=== PATIENT | female | born 1950 | race Two or more races ===

== ENCOUNTER 2024-07-09 14:37 | Inpatient (IN) | payer OTHER, MEDICARE, SELFPAY ==
[2024-07-09] VITALS (9 sets, daily range): BP systolic 116–143; BP diastolic 60–76; PULSE 62–86; RESP 16–89; TEMP 36.8–37.4; O2SAT 91–100; BMI 40.9; BMI 41.3
--- NOTE | 2024-07-09 14:56 | XR_ITS ---
Examination: PA lateral chest 2 views TECHNIQUE: Upright PA lateral chest 2 views Exam date and time: July 09, 2024 1512 hours INDICATIONS: Shortness of breath coughing one week. FINDINGS: Pneumonia posterior basal segment left lower lobe, obscuring detail of the posterior portion left hemidiaphragm on the lateral view Normal heart size Right lung clear IMPRESSION: Significant pneumonia posterior basal segment left lower lobe
--- NOTE | 2024-07-09 14:57 | PD.EDRME ---
Rapid Medical Screening Exam RME Arrival date/time: 07/09/24 14:37 74-year-old female presents to the emergency department today for complaints of shortness of breath and cough ongoing for more than a week Chief Complaint: Shortness of Breath/Dyspnea Vital signs: Vital Signs Temperature 99.4 F 07/09/24 14:51 Pulse Rate 86 07/09/24 14:51 Respiratory Rate 24 H 07/09/24 14:51 Blood Pressure 143/66 H 07/09/24 14:51 Pulse Oximetry (%) 91 L 07/09/24 14:51 Oxygen Delivery Method Room Air 07/09/24 14:51
[2024-07-09 15:21] LABS: Lactate (Lactic Acid) 0.9 mMol/L (0.4-2.0)
[2024-07-09 15:23] LABS: Basophils % (Auto) 0 % (0-2.5); Eosinophils # (Auto) 0.4 Thou/mm3 (0.0-0.5); Eosinophils % (Auto) 4 % (0-10); Hematocrit 39.5 % (36.0-46.0); Hemoglobin 13.3 g/dL (12.0-16.0); Immature Granulocytes % (Auto) 1 % (0-0); Immature Granulocytes Auto 0.12 Thou/mm3 (0.00-0.00); Lymphocytes # (Auto) 2.9 Thou/mm3 (1.0-4.8); Lymphocytes % (Auto) 26 % (10-50); Mean Corpuscular HGB Conc 33.7 g/dl (31.0-37.0); Mean Corpuscular Hemoglobin 28.2 pg (25.0-35.0); Mean Corpuscular Volume 84 fL (80-100); Monocytes # (Auto) 0.6 Thou/mm3 (0.0-0.8); Monocytes % (Auto) 5 % (0-12); Neutrophils % (Auto) 64 % (37-80); Nucleated Red Blood Cell % 0 /100 WBC (0); Platelet Count 306 Thou/mm3 (140-440); RDW Standard Deviation 42.7 fL (36.4-46.3); Red Blood Count 4.72 Miln/mm3 (4.00-5.20)
[2024-07-09 15:48] LABS: Alanine Aminotransferase 32 U/L (10-49); Albumin, Serum 4.6 gm/dL (3.4-4.8); Albumin/Globulin Ratio 2.6 (1.2-2.2); Alkaline Phosphatase 83 U/L (46-116); Anion Gap 9 (7-16); Aspartate Amino Transferase 25 U/L (0-34); BUN/Creatinine Ratio 20 Ratio (12-20); Bilirubin,Total 0.4 mg/dL (0.3-1.2); Blood Urea Nitrogen 12 mg/dL (9-23); Calcium 10.9 mg/dL (8.3-10.6); Calcium (Corrected) 10.9 mg/dL (8.5-10.1); Carbon Dioxide 27.2 mMol/L (20.0-31.0); Chloride 104 mMol/L (98-107); Creatinine (Component) 0.6 mg/dL (0.6-1.3); Estimated Creatinine Clearance 76.9 mL/min (>60); Globulin 1.8 gm/dL (2.3-3.5); Glucose 102 mg/dL (74-106); Osmolality,Calculated 279 (275-295); Potassium 4.3 mMol/L (3.4-5.1); Procalcitonin 0.06 ng/ml (0.0-0.49); Sodium 140 mMol/L (136-145); Total Protein 6.4 gm/dL (5.7-8.2); eGFR > 60 See Note
[2024-07-09] MEDS: DEXAMETHASONE SOD PHOS INJ 10 MG/ML VIAL PO (16:00)
[2024-07-09] MEDS: ALBUTEROL/IPRATROPIUM (Duoneb) RT SOL 3 ML NEBU INH (16:16)
[2024-07-09] MEDS: cefTRIAXone/D5w 1gm IV premix 1 GM/50 ML BAG IV (17:21)
[2024-07-09] MEDS: SODIUM CHLORIDE RT SOL 0.9% 3 ML NEBU INH (17:39)
[2024-07-09] MEDS: ALBUTEROL RT 2.5 MG/0.5 ML NEBU INH (17:39)
--- NOTE | 2024-07-09 18:52 | PC.NURSE ---
Pt was walked to the bathroom and then came back from restroom short of breath put back on pulse ox pt o2 sats 86% on RA placed on oxygen 2L pt on 89% increased to 4L pt at 92% provider made aware
--- NOTE | 2024-07-09 19:06 | EKG_ITS ---
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
[2024-07-09 19:38] LABS: Troponin I < 0.020 ng/mL (0.0-0.045)
--- NOTE | 2024-07-09 20:00 | PD.EDSOB ---
ED SOB =RME/HPI General Chief Complaint: Shortness of Breath/Dyspnea Stated Complaint: Sent by pmd for c/o low 02 sats, cough Time Seen by Provider: 07/09/24 15:53 Source: patient Arrival date/time: 07/09/24 14:37 74-year-old female with a history of hypertension and hyperlipidemia presents to the emergency room with a chief complaint of shortness of breath and cough x 10 days Mode of arrival: ambulatory Limitations: no limitations RME / HPI RME / HPI Narrative: 07/09/24 14:37 74-year-old female presents to the emergency department today for complaints of shortness of breath and cough ongoing for more than a week Related Data Home Medications ?Medication ?Instructions ?Recorded ?Confirmed alendronate 70 mg tablet 70 mg PO QDAY 07/12/21 07/12/21 amitriptyline 25 mg tablet 25 mg PO HS 07/12/21 07/12/21 ramipril 10 mg capsule 10 mg PO QDAY 07/12/21 07/12/21 Previous Rx's ?Medication ?Instructions ?Recorded prednisone 20 mg tablet See Taper PO QDAY #8 tabs 07/14/21 Allergies Allergy/AdvReac Type Severity Reaction Status Date / Time acetaminophen (From Vicodin) Allergy Nausea Verified 07/09/24 14:42 hydrocodone (From Vicodin) Allergy Nausea Verified 07/09/24 14:42 Influenza Virus Vaccines AdvReac Severe severe flu Verified 07/09/24 14:42 symptoms Review of Systems Review of Systems Systems Reviewed: All systems reviewed, normal except as documented Constitutional Constitutional: Reports system reviewed and no additional complaints, except as documented, Denies fatigue, Denies fever(s), Denies headache(s) and Denies weakness Eyes Eyes: Reports system reviewed and no additional complaints, except as documented, Denies blurry vision and Denies change in vision ENT Ears, Nose, Mouth, and Throat: Reports system reviewed and no additional complaints, except as documented, Denies otalgia, Denies headache(s), Denies nasal congestion, Denies throat swelling and Denies vertigo Cardiovascular Cardiovascular: Reports system reviewed and no additional complaints, except as documented, Denies chest pain, Reports dyspnea and Reports dyspnea on exertion Respiratory Respiratory: Reports system reviewed and no additional complaints, except as documented, Denies chest congestion, Reports cough, Reports dyspnea, Reports dyspnea on exertion, Reports excessive phlegm production and Reports wheezing Gastrointestinal Gastrointestinal: Reports system reviewed and no additional complaints, except as documented, Denies abdominal pain, Denies cramping, Denies nausea and Denies vomiting Genitourinary Genitourinary: Reports system reviewed and no additional complaints, except as documented Musculoskeletal Musculoskeletal: Reports system reviewed and no additional complaints, except as documented and Denies back pain Integumentary/Breasts Skin/Breast: Reports system reviewed and no additional complaints, except as documented and Denies wounds Neurologic Neurologic: Reports system reviewed and no additional complaints, except as documented, Denies confusion, Denies headache(s), Denies lack of coordination, Denies vertigo and Denies weakness Psychiatric Psychiatric: Reports system reviewed and no additional complaints, except as documented, Denies anxiety, Denies confusion, Denies depression, Denies paranoia, Denies suicidal ideation and Denies tactile hallucinations Endocrine Endocrine: Reports system reviewed and no additional complaints, except as documented and Denies fatigue Hematologic/Lymphatic Hematologic/Lymphatic: Reports system reviewed and no additional complaints, except as documented and Denies lymphadenopathy Allergic/Immunologic Allergic/Immunologic: Reports system reviewed and no additional complaints, except as documented, Denies throat swelling, Denies urticaria and Reports wheezing Past Medical History Past Medical History CARDIAC: Positive Hypertension; Negative Congestive Heart Failure RESPIRATORY: Negative Chronic Obstructive Pulmonary Disease (COPD) GASTROINTESTINAL: Positive Hemorrhoids and Obesity GENITOURINARY: Positive Renal Disease and Kidney Stones ENDOCRINE: Negative Diabetes Mellitus Type 1 or Diabetes Mellitus Type 2 Social History SMOKING STATUS: Former smoker ED Exam General Limitations: Present no limitations General appearance: Present alert and in no apparent distress Head Head exam: Present atraumatic Eye Eye exam: Present normal appearance, PERRL and EOMI ENT ENT exam: Present normal exam, normal oropharynx and mucous membranes moist Neck Neck exam: Present normal inspection, full ROM and trachea midline Chest Chest inspection: Present normal inspection and symmetric chest wall rise Respiratory Respiratory exam: Present normal lung sounds bilaterally, respiratory distress and wheezes; Absent stridor, accessory muscle use or prolonged expiratory phase Expanded Respiratory Exam Location: Left: wheezes, Right: wheezes, Upper: wheezes and Lower: wheezes Cardiovascular Cardiovascular exam: Present regular rate, normal rhythm and normal heart sounds; Absent bradycardia, tachycardia or irregular rhythm Abdominal Exam Abdominal exam: Present soft and normal bowel sounds; Absent tenderness Extremities Exam Extremities exam: Present normal inspection and full ROM Back Exam Back exam: Present normal inspection and full ROM Neurological Exam Neurological exam: Present alert, oriented X3 and CN II-XII intact Psychiatric Psychiatric exam: Present normal affect and normal mood Skin Skin exam: Present warm, dry, intact and normal color Course Quality Measures none Orders Category Date Time Status Admit to Inpatient Status Routine Admission 07/09/24 20:17 Active Patient Condition Routine Admission 07/09/24 20:17 Ordered Bedside COVID-19 Antigen Test NOW Care 07/09/24 14:56 Active Bedside Influenza A&B Antigen Test NOW Care 07/09/24 14:56 Completed EKG (ED ONLY) *Do not use* NOW Care 07/09/24 19:06 Completed Insert IV STAT Care 07/09/24 16:46 Active Miscellaneous Nursing Order NOW Care 07/09/24 20:17 Active Notify provider NEEDED Care 07/09/24 20:17 Active Nurse Swallow Screen X1 Care 07/09/24 20:17 Active Diet Carbohydrate Consistent Diet 07/10/24 Breakfast Active EKG (ED Only) Stat Exams 07/09/24 19:06 Draft XR chest 2V Stat Exams 07/09/24 14:56 Completed Blood Culture (Lab) Stat Lab 07/09/24 15:12 Received CBC AM DRAW Lab 07/10/24 05:00 Ordered CBC AM DRAW Lab 07/11/24 05:00 Ordered CBC AM DRAW Lab 07/12/24 05:00 Ordered CBC Stat Lab 07/09/24 15:09 Completed Cocci Serology IgM with reflex to IgG [Cocci Serology, Lab 07/09/24 20:20 Ordered Unk History] Routine Comprehensive Metabolic Panel AM DRAW Lab 07/10/24 05:00 Ordered Comprehensive Metabolic Panel AM DRAW Lab 07/11/24 05:00 Ordered Comprehensive Metabolic Panel AM DRAW Lab 07/12/24 05:00 Ordered Comprehensive Metabolic Panel Stat Lab 07/09/24 15:09 Completed D-Dimer Routine Lab 07/09/24 20:20 Ordered Lactate (Lactic Acid) Stat Lab 07/09/24 15:09 Completed Lipid Panel AM DRAW Lab 07/10/24 05:00 Ordered Magnesium AM DRAW Lab 07/10/24 05:00 Ordered Magnesium AM DRAW Lab 07/11/24 05:00 Ordered Magnesium AM DRAW Lab 07/12/24 05:00 Ordered Procalcitonin Stat Lab 07/09/24 15:09 Completed RSV [Respiratory Syncytial Virus Ag] Routine Lab 07/09/24 20:20 Ordered Sputum Culture and Gram Stain Routine Lab 07/09/24 20:19 Ordered Thyroid Stimulating Hormone AM DRAW Lab 07/10/24 05:00 Ordered Troponin I Stat Lab 07/09/24 19:10 Completed ALBUTEROL RT 0.5ml [Proventil Rt 0.5ml] Med 07/09/24 17:26 Discontinued 2.5 mg INH X1 ONE Albuterol/Ipratr Rt Sandy [Duoneb Rt Sandy] Med 07/09/24 20:23 Active 3 ml INH Q4HRRT PRN Albuterol/Ipratr Rt Sandy [Duoneb Rt Sandy] Med 07/09/24 15:53 Discontinued 3 ml INH X1 ONE Azithromycin Inj [Zithromax Inj] 500 mg Med 07/10/24 09:00 Pending Sodium Chloride 0.9% 250 ml [Ns] 250 ml IV QDAY Azithromycin Inj [Zithromax Inj] 500 mg Med 07/09/24 20:30 Active Sodium Chloride 0.9% 250 ml [Ns] 250 ml IV X1 Dexamethasone Inj [Decadron Inj] Med 07/09/24 15:53 Discontinued 10 mg PO X1 ONE Heparin Inj Med 07/09/24 22:00 Active 5,000 unit SC Q8HR Metoclopramide Inj [Reglan Inj] Med 07/09/24 20:17 Active 10 mg IVP Q6H PRN Pantoprazole [Protonix] Med 07/10/24 09:00 Active 40 mg PO QDAY Sodium Chloride Rt Sandy 0.9% [NS Rt Sandy 0.9%] Med 07/09/24 17:26 Active 3 ml INH PRN PRN Sodium Chloride Rt Sandy 10% [NS Rt Sandy 10%] Med 07/09/24 20:17 Discontinued 5 ml INH X1 ONE cefTRIAXone/D5w 1gm IV premix [Rocephin/D5w 1gm IV Med 07/10/24 09:00 Active premix] 1 gm in 50 ml IV QDAY cefTRIAXone/D5w 1gm IV premix [Rocephin/D5w 1gm IV Med 07/09/24 16:46 Discontinued premix] 1 gm in 50 ml IV X1 Code Status Routine Oth 07/09/24 20:17 Ordered Oxygen Delivery PRN RT 07/09/24 20:17 Active Sputum Induction PRN RT 07/09/24 20:30 Ordered Vital Signs Vital signs: Vital Signs Temperature 99.4 F 07/09/24 14:51 Pulse Rate 86 07/09/24 14:51 Respiratory Rate 24 H 07/09/24 14:51 Blood Pressure 143/66 H 07/09/24 14:51 Pulse Oximetry (%) 91 L 07/09/24 14:51 Oxygen Delivery Method Room Air 07/09/24 14:51 Patient is a 91% on 2 L nasal cannula Shortness of Breath / Dyspnea MDM Narrative MDM Narrative:: 74-year-old female with a history of hypertension and hyperlipidemia presents to the emergency room with a chief complaint of shortness of breath and cough x 10 days The patient was sent over by her primary care provider for hypoxia at the clinic. Patient was 86% on room air Physical examination shows bilateral wheezing to the upper and lower lobes. The patient is short of breath with exertion. The patient was given 1 DuoNeb treatment and some steroids and reevaluated in 1 hour with no significant improvement to her symptoms. Patient was then walked around the department and then desatted to 88% on room air. Patient is currently 92% on 4 L nasal cannula. X-rays were completed and shows some right-sided pneumonia. Antibiotics were given to her Dr. Glass was called for admission of this patient due to hypoxia and pneumonia. They will admit the patient Patient data External records reviewed:: [facility] previous records Clinical information provided by:: patient Social determinants that could affect healthcare access:: none Patient has the following chronic illnesses:: No chronic illness How is presenting disease/condition affected by chronic disease/condition?: no chronic disease Evaluation data The following diagnostics were reviewed and interpreted by me:: lab results and radiology exam(s) Lab and/or radiology exams considered but not ordered:: Labs and radiology exams considered and ordered Interpretation Summary: Chest [id number]: Pneumonia posterior basal segment left lower lobe, obscuring detail of the posterior portion left hemidiaphragm on the lateral view Normal heart size Right lung clear IMPRESSION: Significant pneumonia posterior basal segment left lower lobe Medications / Prescriptions Medications or Prescriptions considered but not ordered:: Medication given Medication administrations:: Medication Administration History Albuterol/Ipratropium (Albuterol/Ipratropium (Duoneb) Rt Sandy 3 Ml Nebu) 3 ml INH Q4HRRT PRN PRN Reason: SOB or wheezing Stop: 08/08/24 22:59 Heparin Sodium (Porcine) (Heparin Sod Inj 5000 Unit/Ml Vial) 5,000 unit SC Q8HR CLAUDETTE Stop: 07/23/24 21:59 Ceftriaxone Sodium/Dextrose (Rocephin/D5w 1gm Iv Premix) 1 gm in 50 mls @ 100 mls/hr IV QDAY CLAUDETTE Stop: 07/17/24 08:59 Azithromycin 500 mg/ Sodium (Chloride) 250 mls @ 250 mls/hr IV QDAY CLAUDETTE Stop: 07/17/24 08:59 Azithromycin 500 mg/ Sodium (Chloride) 250 mls @ 250 mls/hr IV X1 ONE Stop: 07/09/24 21:29 Metoclopramide HCl (Metoclopramide Inj 5 Mg/Ml Vial 2 Ml) 10 mg IVP Q6H PRN; Protocol PRN Reason: NAUSEA OR VOMITING Stop: 08/08/24 20:16 Pantoprazole Sodium (Pantoprazole 40 Mg Tablet) 40 mg PO QDAY CLAUDETTE Stop: 08/09/24 08:59 Sodium Chloride (Sodium Chloride Rt Sandy 0.9% 3 Ml Nebu) 3 ml INH PRN PRN PRN Reason: SOLN Stop: 08/08/24 17:25 Last Admin: 07/09/24 17:39 Dose: 3 ml Documented By: CRISTA Discontinued Medications Albuterol (Albuterol Rt 2.5 Mg/0.5 Ml Nebu) 2.5 mg INH X1 ONE Stop: 07/09/24 17:27 Last Admin: 07/09/24 17:39 Dose: 2.5 mg Documented By: CRISTA Albuterol/Ipratropium (Albuterol/Ipratropium (Duoneb) Rt Sandy 3 Ml Nebu) 3 ml INH X1 ONE Stop: 07/09/24 15:54 Last Admin: 07/09/24 16:16 Dose: 3 ml Documented By: TULIO Dexamethasone Sodium Phosphate (Dexamethasone Sod Phos Inj 10 Mg/Ml Vial) 10 mg PO X1 ONE Stop: 07/09/24 15:54 Last Admin: 07/09/24 16:00 Dose: 10 mg Documented By: DB Comments: MED GIVEN PO PER ORDER Ceftriaxone Sodium/Dextrose (Rocephin/D5w 1gm Iv Premix) 1 gm in 50 mls @ 100 mls/hr IV X1 ONE Stop: 07/09/24 17:15 Last Infusion: 07/09/24 17:55 Dose: Infused Documented By: Admin: 07/09/24 17:21 Dose: 100 mls/hr Documented By: ANYI Sodium Chloride (Sodium Chloride Rt 10% 15 Ml Nebu) 5 ml INH X1 ONE Stop: 07/09/24 20:18 Medication given Consultations Consultation(s) initiated? (list below): No Diagnosis Shortness of Breath Differential Diagnosis: acute exacerbation of chronic obstructive airways disease, congestive heart failure, community acquired pneumonia, asthma with exacerbation and pulmonary embolism Most likely diagnosis given after review of the tests above:: Community-acquired pneumonia Admission Indicated Admission indicated?: indicated Explain why admission is indicated or not indicated:: Patient will be admitted for IV antibiotics and close observation due to her pneumonia and hypoxia Admission Request Was there a request for admission?: Yes Admission Attestation Admission request attestation: Discussed case with [Dr. Reid] from Hospitalist service regarding admission. Discussed patients ED course, exam findings, labs, and radiology results. The Hospitalist [agrees,declines] to accept the patient for admission. Disposition Plan Disposition Plan: Admit Discharge Plan Plan Patient Disposition: Admit Acute Care w/in Hospital Discharge Disposition comment: Stable Prescriptions/Referrals Prescriptions/Med Rec: No Action alendronate 70 mg tablet 70 mg PO QDAY Patient Comments: TAKE ONE TABLET BY MOUTH EVERY WEEK IN THE MORNING WITH GLASS OF WATER BONE Rx Instructions: Monday. amitriptyline 25 mg tablet 25 mg PO HS Patient Comments: TAKE ONE TABLET BY MOUTH EVERY DAY AT BED TIME ramipril 10 mg capsule 10 mg PO QDAY Patient Comments: TAKE ONE CAPSULE BY MOUTH EVERY DAY prednisone 20 mg tablet See Taper PO QDAY Qty: 8 0RF Taper: Prednisone Taper 40 mg DAILY for 2 Days and 0 Hour 30 mg DAILY for 2 Days and 0 Hour 20 mg DAILY for 2 Days and 0 Hour 10 mg DAILY for 2 Days Problem List Clinical Impression: Community acquired pneumonia Patient/Caregiver Discharge Instructions Print Language: Hebrew Stand Alone Forms: [facility]est[facility] Award Info., Patient Portal Info Letter
--- NOTE | 2024-07-09 20:22 | PD.RESHP ---
Documentation for date of: 07/09/24 HPI History of Present Illness Chief complaint: SOB, cough History of present illness: 74-year-old female with past medical history of hypertension, prediabetes, and hyperlipidemia was admitted to the hospital on 08/05/2024 after coming to the ED with complaints of shortness of breath. In the ED patient was walked and patient was hypoxic on room air she desaturated to 86 while walking she had to be placed on 4 L of O2 via nasal cannula to increase O2 to 92%. On assessment patient stated that around 10 days ago she started having cough and shortness of breath. She also stated that a great grandson was likely sick with some sneezing and possibly the common cold, but he was not taking any medications for this. Other than this patient does not have any other complaints at this time other than the shortness of breath in the productive cough. She denied any chest pain, fevers, chills, night sweats, or weight loss. Otherwise patient had no other complaints at this time. She also denied any leg swelling, abdominal pain, or changes in bowel movements. She does have a history of previous smoking around 20 years ago where she used to smoke around half pack per day for more than 10 years. ED course: Patient came in hypertensive, tachypneic, afebrile, and hypoxic. Initial labs were unremarkable and troponins were negative as well as procalcitonin. Initial imaging showed chest x-ray with that shows some pneumonia of posterior basal segment of the left lower lobe and EKG shows sinus rhythm. In the ED patient received breathing treatments and dexamethasone, without any improvement in patient's O2 saturations. PMH: As above Social Hx: Denies any drugs, alcohol, PAD smoker Review of Systems Review of Systems Narrative Review of Systems: Constitutional: Denies sweats, Denies weight loss/gain, Denies fever, Denies chills. HEENT: Denies hearing loss, Denies ear pain, Denies postnasal drip, Denies double vision, Denies blurry vision. Respiratory: Admits shortness of breath, Admits cough, Denies wheezing. Cardiovascular: Denies chest pain, Denies palpitations, Denies sudden loss of consciousness. GI: Denies blood in stool, Denies constipation, Denies abdominal pain, Denies difficulty swallowing, Denies nausea or vomit. : Denies urinary incontinence, Denies pain while urinating, Denies increased urinary frequency. MSK: Denies joint pain, Denies joint swelling, Denies numbness. Skin: Denies rash, Denies itching, Denies easy bruising. Neuro: Denies headaches, Denies dizziness, Denies seizures. Exam Vital Signs Temp Pulse Resp BP Pulse Ox O2 Del Method O2 Flow Rate 99.2 F 81 16 116/70 92 L Nasal Cannula 4 07/09/24 18:20 07/09/24 18:20 07/09/24 18:20 07/09/24 18:20 07/09/24 18:54 07/09/24 18:54 07/09/24 18:54 Narrative Exam General: A/O x3, no acute distress, well-nourished, well-developed Eyes: PERRL, EOMI. Anicteric, vision grossly intact. Ears: No ear pain, no ear discharge, Hearing grossly intact. Nose: No nasal discharge. Mouth/Throat: Moist mucous membranes, no redness, no lesions. Neck: Neck supple, non-tender, no cervical lymphadenopathy. Lungs: upper airway congestion and mild rhonchi, No accessory muscle use. Cardio: Normal S1/S2, regular rhythm, no murmurs, no JVD Abdomen: Soft, non-tender, no palpable masses, peristalsis present, no guarding or rebound. Extremities: Symmetrical, no significant deformities, no peripheral edema , non-tender, peripheral pulses presents. Skin: No rashes, no lesions, warm to touch. Neuro: No focal neurological deficits. Psych: Cooperative, appropriate mood and effect. Results: Labs 07/09/24 15:09 07/09/24 15:09 Labs: Short CBC 07/09/24 Range/Units 15:09 WBC 11.0 (3.6-11.0) Thou/mm3 Hgb 13.3 (12.0-16.0) g/dL Hct 39.5 (36.0-46.0) % Plt Count 306 (140-440) Thou/mm3 BMP 07/09/24 15:09 Sodium 140 Potassium 4.3 Chloride 104 Carbon Dioxide 27.2 BUN 12 Creatinine 0.6 Glucose 102 Calcium 10.9 H Cardiac Enzymes 07/09/24 Range/Units 19:10 Troponin I < 0.020 (0.0-0.045) ng/mL Liver Function 07/09/24 Range/Units 15:09 Total Bilirubin 0.4 (0.3-1.2) mg/dL AST 25 (0-34) U/L ALT 32 (10-49) U/L Alkaline Phosphatase 83 (46-116) U/L Albumin 4.6 (3.4-4.8) gm/dL Quality Measures Quality Measures none Advance care planning discussed with:: patient and child Medications Home Medications and Allergies Home Medications ?Medication ?Instructions ?Recorded ?Confirmed ?Type amitriptyline 25 mg tablet 25 mg PO HS 07/12/21 07/09/24 History ramipril 10 mg capsule 10 mg PO QDAY 07/12/21 07/09/24 History aspirin 81 mg tablet,delayed 81 mg PO QDAY 07/09/24 07/09/24 History release (Adult Low Dose Aspirin) atorvastatin 20 mg tablet 20 mg PO QDAY 07/09/24 07/09/24 History Allergies Allergy/AdvReac Type Severity Reaction Status Date / Time acetaminophen (From Vicodin) Allergy Nausea Verified 07/09/24 14:42 hydrocodone (From Vicodin) Allergy Nausea Verified 07/09/24 14:42 Influenza Virus Vaccines AdvReac Severe severe flu Verified 07/09/24 14:42 symptoms Visit Medications Heparin Sodium (Porcine) (Heparin Sod Inj 5000 Unit/Ml Vial) 5,000 unit SC Q8HR CLAUDETTE Stop: 07/23/24 21:59 Ceftriaxone Sodium/Dextrose (Rocephin/D5w 1gm Iv Premix) 1 gm in 50 mls @ 100 mls/hr IV QDAY CLAUDETTE Stop: 07/16/24 20:19 Azithromycin 500 mg/ Sodium (Chloride) 250 mls @ 250 mls/hr IV QDAY CLAUDETTE Stop: 07/16/24 20:20 Metoclopramide HCl (Metoclopramide Inj 5 Mg/Ml Vial 2 Ml) 10 mg IVP Q6H PRN; Protocol PRN Reason: NAUSEA OR VOMITING Stop: 08/08/24 20:16 Sodium Chloride (Sodium Chloride Rt Sandy 0.9% 3 Ml Nebu) 3 ml INH PRN PRN PRN Reason: SOLN Stop: 08/08/24 17:25 Last Admin: 07/09/24 17:39 Dose: 3 ml Sodium Chloride (Sodium Chloride Rt 10% 15 Ml Nebu) 5 ml INH X1 ONE Stop: 07/09/24 20:18 Discontinued Medications Albuterol (Albuterol Rt 2.5 Mg/0.5 Ml Nebu) 2.5 mg INH X1 ONE Stop: 07/09/24 17:27 Last Admin: 07/09/24 17:39 Dose: 2.5 mg Albuterol/Ipratropium (Albuterol/Ipratropium (Duoneb) Rt Sandy 3 Ml Nebu) 3 ml INH X1 ONE Stop: 07/09/24 15:54 Last Admin: 07/09/24 16:16 Dose: 3 ml Dexamethasone Sodium Phosphate (Dexamethasone Sod Phos Inj 10 Mg/Ml Vial) 10 mg PO X1 ONE Stop: 07/09/24 15:54 Last Admin: 07/09/24 16:00 Dose: 10 mg Ceftriaxone Sodium/Dextrose (Rocephin/D5w 1gm Iv Premix) 1 gm in 50 mls @ 100 mls/hr IV X1 ONE Stop: 07/09/24 17:15 Last Infusion: 07/09/24 17:55 Dose: Infused Assessment & Plan Plan 74-year-old female with past medical history of hypertension, prediabetes, and hyperlipidemia was admitted to the hospital on 08/05/2024 for acute hypoxic respiratory failure likely secondary to community-acquired pneumonia. #Acute hypoxic respiratory failure #Community-acquired pneumonia Patient came in with complaints of shortness of breath with productive cough of around 10 days ago. Patient's labs look fairly unremarkable but finally WBC elevations and negative procalcitonin. Patient's chest x-ray that shows some left lower lobe pneumonia. Given patient's hypoxemia which for chest x-ray imaging findings seem to prominent will exclude PE given the low scores of 0. Plan: Start azithromycin and Rocephin (07/09/2024?) DuoNebs D-dimer to rule out PE Cocci ordered RSV ordered Sputum cultures ordered Continue O2 as needed Will continue to monitor Chronic diseases: #Hx of hypertension #Hx of hyperlipidemia #Hx of prediabetes Ordered morning lipid panel, TSH, and A1c. Patient's blood pressure is under control at the time of admission therefore will not start patient on any antihypertensive medication for now. Will wait for medication reconciliation prior to starting home medications. Disposition: Patient admitted to med surg for AHRF 2/2 CAP. Diet: carb low GI prophylaxis: protonix DVT prophylaxis: heparin sub cu Code: Full Case disclosed with Attending Dr. Lior Arias PGY1 Disclaimer: Even though this this note was dictated by speech recognition and even though it was carefully revised there may still be minor errors in director print due to voice recognition software. Attending Provider Attestation/Addendum Face to face evaluation was performed by me. I have personally seen and examined the patient. I discussed the assessment and plan with the entire medicine team. I reviewed available medical records, imaging studies, laboratory results. I agree with the above subjective data, objective findings, assessment and plan except as corrected by me or noted below #Acute hypoxic respiratory failure #Community-acquired pneumonia, bacterial likely GPC # Hx of CVA#HLD# Prediabetes # Hx of HTN essential -CAP Abx coverage with cef iv and azithro- can switch to po - D dimer not elevated -Supplemental O2, wean as able, breahting treatments PRN - Continue appropriate home meds monitor BP abd HR More than > 30 minutes spent on the encounter
[2024-07-09 21:10] LABS: D-Dimer 319 ng/mL (<600)
[2024-07-09] MEDS: AZITHROMYCIN INJ 500 MG in SODIUM CHLORIDE 0.9% 250 ML 250 ML 250 MG IV (21:32)
--- NOTE | 2024-07-09 21:40 | PC.NURSE ---
Report given to floor nurse, EVERTON Malik
[2024-07-09] MEDS: HEPARIN SOD INJ 5000 UNIT/ML VIAL SC (22:31)
[2024-07-09 22:43] LABS: Respiratory Syncytial Virus Ag Negative (Negative)
[2024-07-09] MEDS: MELATONIN 3 MG TABLET PO (23:04)
[2024-07-10] VITALS (9 sets, daily range): BP systolic 107–128; BP diastolic 49–75; PULSE 59–86; RESP 16–20; TEMP 36.2–36.4; O2SAT 91–96
[2024-07-10] MEDS: guaiFENesin SYRUP 200 MG/10 ML UDC PO (03:59)
[2024-07-10] MEDS: HEPARIN SOD INJ 5000 UNIT/ML VIAL SC ×3 (05:12→21:47)
[2024-07-10 05:44] LABS: Basophils % (Auto) 0 % (0-2.5); Eosinophils % (Auto) 0 % (0-10); Hemoglobin 12.9 g/dL (12.0-16.0); Immature Granulocytes % (Auto) 2 % (0-0); Immature Granulocytes Auto 0.14 Thou/mm3 (0.00-0.00); Lymphocytes # (Auto) 1.2 Thou/mm3 (1.0-4.8); Lymphocytes % (Auto) 12 % (10-50); Mean Corpuscular HGB Conc 33.9 g/dl (31.0-37.0); Mean Corpuscular Hemoglobin 28.4 pg (25.0-35.0); Mean Corpuscular Volume 84 fL (80-100); Monocytes # (Auto) 0.1 Thou/mm3 (0.0-0.8); Monocytes % (Auto) 2 % (0-12); Neutrophils % (Auto) 85 % (37-80); Nucleated Red Blood Cell % 0 /100 WBC (0); Platelet Count 317 Thou/mm3 (140-440); RDW Standard Deviation 42.5 fL (36.4-46.3); Red Blood Count 4.55 Miln/mm3 (4.00-5.20); White Blood Count 9.5 Thou/mm3 (3.6-11.0)
[2024-07-10 06:06] LABS: Glucose Estimated Average 123 mg/dL (80-131); Hemoglobin A1C 5.9 % Hgb (4.8-6.0)
[2024-07-10 06:37] LABS: Alanine Aminotransferase 31 U/L (10-49); Albumin, Serum 4.4 gm/dL (3.4-4.8); Albumin/Globulin Ratio 2.3 (1.2-2.2); Alkaline Phosphatase 77 U/L (46-116); Anion Gap 12 (7-16); Aspartate Amino Transferase 25 U/L (0-34); BUN/Creatinine Ratio 23 Ratio (12-20); Bilirubin,Total 0.3 mg/dL (0.3-1.2); Blood Urea Nitrogen 14 mg/dL (9-23); Calcium 9.3 mg/dL (8.3-10.6); Calcium (Corrected) 9.3 mg/dL (8.5-10.1); Cardiac Risk Estimate 2.9 RATIO (3.7-5.6); Chloride 108 mMol/L (98-107); Cholesterol 177 mg/dL (132-200); Creatinine (Component) 0.6 mg/dL (0.6-1.3); Estimated Creatinine Clearance 75.3 mL/min (>60); Globulin 1.9 gm/dL (2.3-3.5); Glucose 153 mg/dL (74-106); HDL Cholesterol 61 mg/dL (40-60); LDL Cholesterol,Calculated 95 mg/dL (0-130); Magnesium 1.8 mg/dL (1.6-2.6); Osmolality,Calculated 290 (275-295); Potassium 4.4 mMol/L (3.4-5.1); Sodium 144 mMol/L (136-145); Thyroid Stimulating Hormone 0.38 uIU/mL (0.55-4.78); Total Protein 6.3 gm/dL (5.7-8.2); Triglycerides 104 mg/dL (30-150); eGFR > 60 See Note
[2024-07-10 08:38] LABS: Free T4 (Free Thyroxine) 0.91 ng/dL (0.89-1.76)
[2024-07-10] MEDS: cefTRIAXone/D5w 1gm IV premix 1 GM/50 ML BAG IV (08:44)
[2024-07-10 12:08] LABS: Cocci Serology, IgM Negative (Negative)
[2024-07-10] MEDS: BENZONATATE 100 MG CAPSULE 200 MG PO (12:16)
--- NOTE | 2024-07-10 14:24 | ESPR_ITS ---
<Statement entered by Stas Mensah MD - 07/11/24 07:13> I discussed with and supervised the internet security specialist physician involved in the care of this patient. Patient assessment and plan was discussed with entire medicine team, including my attending. I agree with the assessment and plan as documented by internet security specialist doctor. Patient care was discussed with my attending physician Dr. Michelet Mensah, PGY-2 Documentation for date of: 07/10/24 Subjective Subjective Interval history: Patient is seen and examined at bedside No acute overnight events. Endorsed that she is having cough associated with mild sputum Vitals are stable, saturating around 94% with 2 L oxygen. Physical examination remains unremarkable Labs are unremarkable except for mildly elevated blood glucose. Tested negative for cocci IgM Will continue ceftriaxone and azithromycin for today. Will recheck saturation tomorrow and if patient is maintaining saturation at room air, we will discharge tomorrow Exam Vital Signs Temp Pulse Resp BP Pulse Ox O2 Del Method O2 Flow Rate 97.5 F 86 20 115/75 96 Nasal Cannula 3 07/10/24 12:00 07/10/24 12:00 07/10/24 12:00 07/10/24 12:07/10/24 12:07/10/24 12:07/10/24 12:00 Narrative Exam General: Awake. HEENT: Normocephalic, atraumatic, mucous membranes moist. Heart: Regular rate and rhythm, no murmurs. Lungs: Clear to auscultation with no wheezing or crackles. Abdomen: Soft, nondistended, nontender, positive bowel sounds. ?No guarding or rebound tenderness. Neurologic: Alert and oriented x3, no gross neurological deficit, and patient able to move all 4 extremities. Extremities: No edema. Skin: No rash or ecchymoses. Objective Labs 07/10/24 04:55 07/10/24 04:55 Labs: Laboratory Results - last 24 hr 07/09/24 07/09/24 07/09/24 15:09 19:10 21:18 WBC 11.0 RBC 4.72 Hgb 13.3 Hct 39.5 MCV 84 MCH 28.2 MCHC 33.7 RDW Std Deviation 42.7 Plt Count 306 Neut % (Auto) 64 Lymph % (Auto) 26 Gem % (Auto) 5 Eos % (Auto) 4 Baso % (Auto) 0 Neut # (Auto) 7.0 Lymph # (Auto) 2.9 Gem # (Auto) 0.6 Eos # (Auto) 0.4 Baso # (Auto) 0.0 Immature Gran # (Auto) 0.12 H Absolute Nucleated RBC 0.00 Immature Gran % 1 H Nucleated RBC % 0 D-Dimer 319 Sodium 140 Potassium 4.3 Chloride 104 Carbon Dioxide 27.2 Anion Gap 9 BUN 12 Creatinine 0.6 Estim Creat Clear Calc 76.9 eGFR > 60 BUN/Creatinine Ratio [address] Glu mg/dL Hemoglobin A1c Calculated Osmolality 279 Lactic Acid 0.9 Calcium 10.9 H Corrected Calcium 10.9 H Magnesium Total Bilirubin 0.4 AST 25 ALT 32 Alkaline Phosphatase 83 Troponin I < 0.020 Total Protein 6.4 Albumin 4.6 Globulin 1.8 L Albumin/Globulin Ratio 2.6 H Triglycerides Cholesterol LDL Cholesterol, Calc HDL Cholesterol Cholesterol/HDL Ratio Procalcitonin 0.06 TSH Free T4 Coccidioides IgM Ab RSV Rapid Negative 07/10/24 04:55 WBC 9.5 RBC 4.55 Hgb 12.9 Hct 38.0 MCV 84 MCH 28.4 MCHC 33.9 RDW Std Deviation 42.5 Plt Count 317 Neut % (Auto) 85 H Lymph % (Auto) 12 Gem % (Auto) 2 Eos % (Auto) 0 Baso % (Auto) 0 Neut # (Auto) 8.0 H Lymph # (Auto) 1.2 Gem # (Auto) 0.1 Eos # (Auto) 0.0 Baso # (Auto) 0.0 Immature Gran # (Auto) 0.14 H Absolute Nucleated RBC 0.00 Immature Gran % 2 H Nucleated RBC % 0 D-Dimer Sodium 144 Potassium 4.4 Chloride 108 H Carbon Dioxide 24.0 Anion Gap 12 BUN 14 Creatinine 0.6 Estim Creat Clear Calc 75.3 eGFR > 60 BUN/Creatinine Ratio 23 H Glucose [address] Glu mg/dL 123 Hemoglobin A1c 5.9 Calculated Osmolality 290 Lactic Acid Calcium 9.3 D Corrected Calcium 9.3 D Magnesium 1.8 Total Bilirubin 0.3 AST 25 ALT 31 Alkaline Phosphatase 77 Troponin I Total Protein 6.3 Albumin 4.4 Globulin 1.9 L Albumin/Globulin Ratio 2.3 H Triglycerides 104 Cholesterol 177 LDL Cholesterol, Calc 95 HDL Cholesterol 61 H Cholesterol/HDL Ratio 2.9 L Procalcitonin TSH 0.38 L Free T4 0.91 Coccidioides IgM Ab Negative RSV Rapid Quality Measures Quality Measures none Advance care planning discussed with:: patient and child Assessment & Plan Assessment Current Active Medications: Generic Name Dose Route Start Last Admin Trade Name Freq PRN Reason Stop Dose Admin Albuterol/Ipratropium 3 ml 07/09/24 20:23 Albuterol/Ipratropium (Duoneb) Rt Sandy 3 Ml Nebu INH 08/08/24 22:59 Q4HRRT PRN SOB or wheezing Azithromycin 500 mg 07/10/24 21:00 Azithromycin 250 Mg Tablet PO 07/17/24 20:59 HS CLAUDETTE Benzonatate 200 mg 07/10/24 12:04 07/10/24 12:16 Benzonatate 100 Mg Capsule PO 08/09/24 12:03 200 mg Q8HR PRN Administration COUGH Protocol Heparin Sodium (Porcine) 5,000 unit 07/09/24 22:00 07/10/24 05:12 Heparin Sod Inj 5000 Unit/Ml Vial SC 07/23/24 21:59 5,000 unit Q8HR CLAUDETTE Administration Ceftriaxone Sodium/Dextrose 1 gm in 50 mls @ 100 mls/hr 07/10/24 09:00 07/10/24 08:44 Rocephin/D5w 1gm Iv Premix IV 07/14/24 08:59 100 mls/hr QDAY CLAUDETTE Administration Melatonin 3 mg 07/10/24 21:00 Melatonin 3 Mg Tablet PO 08/09/24 20:59 HS CLAUDETTE Metoclopramide HCl 10 mg 07/09/24 20:17 Metoclopramide Inj 5 Mg/Ml Vial 2 Ml IVP 08/08/24 20:16 Q6H PRN NAUSEA OR VOMITING Protocol Sodium Chloride 3 ml 07/09/24 17:26 07/09/24 17:39 Sodium Chloride Rt Sandy 0.9% 3 Ml Nebu INH 08/08/24 17:25 3 ml PRN PRN Administration SOLN Plan 74-year-old female with past medical history of hypertension, prediabetes, and hyperlipidemia was admitted to the hospital on 08/05/2024 for acute hypoxic respiratory failure likely secondary to community-acquired pneumonia. #Acute hypoxic respiratory failure 2/2 -improved #Community-acquired pneumonia, Left lung, likely secondary to gram-negative organisms Patient came in with complaints of shortness of breath with productive cough of around 10 days ago. Patient's labs look fairly unremarkable but finally WBC elevations and negative procalcitonin. Patient's chest x-ray that shows some left lower lobe pneumonia. Given patient's hypoxemia which for chest x-ray imaging findings seem to prominent will exclude PE given the low scores of 0. Tested negative for cocci, influenza A, B and RSV. Plan: Start azithromycin and Rocephin (07/09/2024?) DuoNebs Sputum cultures ordered Continue O2 as needed Will continue to monitor Chronic diseases: #Hx of hypertension #Hx of hyperlipidemia #Hx of prediabetes - A1c is 5.9. TSH is 0.38 but free T4 is within normal limits - Lipid panel is within normal limits - Patient's blood pressure is within normal limits since the hospital admission, will monitor blood pressures and add medications as needed Disposition: Patient admitted to med surg for AHRF 2/2 CAP. Diet: carb low GI prophylaxis: protonix DVT prophylaxis: heparin sub cu Code: Full Patient plan of care was discussed with the attending physician, Dr. Tafoya and senior resident Dr. Rodrick Rey, PGY1 Attending Provider Attestation/Addendum I have discussed and was present for the essential components of the history, physical examination, diagnosis, and treatment plan with the resident. I agree with the patient's care as documented by the resident and amended herein by me. King Tafoya DO. Patient seen and evaluated this AM. No acute events overnight, patient receiving breathing treatment in the a.m. Was on 2 L NC, SpO2 92% per respiratory therapist just prior to arrival. Labs largely unremarkable. The patient did have complaints of cough in which I prescribed Tessalon for now. Will continue antibiotics, ceftriaxone azithromycin, cocci serologies were negative, possible discharge on 07/11 pending clinical improvement. Although this document has been carefully reviewed, there may still be some phonetic and other typographical errors. These errors are purely grammatical due to imperfections in the software program and should not be construed in any way to compromise the substance of the patient's medical care during this visit.
[2024-07-10] MEDS: guaiFENesin SYRUP 200 MG/10 ML UDC 100 MG PO ×2 (15:58→20:14)
[2024-07-10] MEDS: AZITHROMYCIN 250 MG TABLET 500 MG PO (20:12)
[2024-07-11] VITALS: BP 120/64; PULSE 55; RESP 19; TEMP 36.2; O2SAT 93
[2024-07-11] MEDS: guaiFENesin SYRUP 200 MG/10 ML UDC 100 MG PO (02:56)
[2024-07-11 04:00] VITALS: BP 109/62; PULSE 62; RESP 19; TEMP 36.2; O2SAT 96
[2024-07-11] MEDS: HEPARIN SOD INJ 5000 UNIT/ML VIAL SC ×2 (05:03→13:04)
[2024-07-11 05:57] LABS: Alanine Aminotransferase 32 U/L (10-49); Albumin/Globulin Ratio 2.2 (1.2-2.2); Alkaline Phosphatase 68 U/L (46-116); Anion Gap 10 (7-16); Aspartate Amino Transferase 32 U/L (0-34); BUN/Creatinine Ratio 25 Ratio (12-20); Bilirubin,Total 0.4 mg/dL (0.3-1.2); Blood Urea Nitrogen 15 mg/dL (9-23); Calcium 8.8 mg/dL (8.3-10.6); Calcium (Corrected) 8.8 mg/dL (8.5-10.1); Carbon Dioxide 26.7 mMol/L (20.0-31.0); Chloride 109 mMol/L (98-107); Creatinine (Component) 0.6 mg/dL (0.6-1.3); Estimated Creatinine Clearance 75.3 mL/min (>60); Globulin 1.8 gm/dL (2.3-3.5); Glucose 101 mg/dL (74-106); Magnesium 2.2 mg/dL (1.6-2.6); Osmolality,Calculated 291 (275-295); Potassium 4.4 mMol/L (3.4-5.1); Sodium 146 mMol/L (136-145); Total Protein 5.8 gm/dL (5.7-8.2); eGFR > 60 See Note
[2024-07-11 06:02] LABS: Basophils # (Auto) 0.1 Thou/mm3 (0.0-0.2); Basophils % (Auto) 0 % (0-2.5); Eosinophils # (Auto) 0.1 Thou/mm3 (0.0-0.5); Eosinophils % (Auto) 1 % (0-10); Hematocrit 40.7 % (36.0-46.0); Hemoglobin 13.1 g/dL (12.0-16.0); Immature Granulocytes % (Auto) 1 % (0-0); Immature Granulocytes Auto 0.16 Thou/mm3 (0.00-0.00); Lymphocytes # (Auto) 4.1 Thou/mm3 (1.0-4.8); Lymphocytes % (Auto) 31 % (10-50); Mean Corpuscular HGB Conc 32.2 g/dl (31.0-37.0); Mean Corpuscular Hemoglobin 28.3 pg (25.0-35.0); Mean Corpuscular Volume 88 fL (80-100); Monocytes # (Auto) 0.7 Thou/mm3 (0.0-0.8); Monocytes % (Auto) 5 % (0-12); Neutrophils # (Auto) 8.2 Thou/mm3 (1.8-7.7); Neutrophils % (Auto) 61 % (37-80); Nucleated Red Blood Cell % 0 /100 WBC (0); Platelet Count 324 Thou/mm3 (140-440); RDW Standard Deviation 45.9 fL (36.4-46.3); Red Blood Count 4.63 Miln/mm3 (4.00-5.20); White Blood Count 13.4 Thou/mm3 (3.6-11.0)
[2024-07-11 07:54] VITALS: BP 114/56; PULSE 57; RESP 17; TEMP 36.2; O2SAT 95
[2024-07-11] MEDS: cefTRIAXone/D5w 1gm IV premix 1 GM/50 ML BAG IV (08:25)
--- NOTE | 2024-07-11 10:26 | PC.NURSE ---
Pt on RA at rest, O2 SATS 92%. Pt on RA ambulating, O2 SATS 86%.
--- NOTE | 2024-07-11 11:09 | PC.SS ---
OXYGEN Pt is discharged in a chronic stable state and has been treated optimally and has other respiratory needs. Oxygen has been ordered due to AHRF.
[2024-07-11 11:17] LABS: Cocci Serology, IgG Negative (Negative)
[2024-07-11 11:26] VITALS: PULSE 60; RESP 18; O2SAT 95
--- NOTE | 2024-07-11 11:38 | PC.SS ---
Initial assessment: patient is a 74-year old female admitted for PNA and AHRF. Patient is Fijian speaking. Patient able to confirm demographic information. Patient states her home address is [address] [place], [place] [id number]. Patient reports being independent with ambulation. Patient denies the use of DME at home. Patient informs her PCP is Minerva Spencer. Preferred pharmacy is [facility] on [address]. Patient plans to return home upon discharge, informs her family to transport her home. Patient informs she will need home 02, no preferred vendor. Patient informs in case of an emergency her sonJuan Daniel could be contacted. D/c plan: Home Next of kin: sonJuan Daniel
--- NOTE | 2024-07-11 11:53 | PC.SS ---
Addendum entered by ELENA Pagan 07/11/24 17:22: [facility] confirmed they were onsite to deliver 02. Addendum entered by ELENA Pagan 07/11/24 15:35: [facility] staff was made aware of new 02 order sent. . Addendum entered by ELENA Pagan 07/11/24 15:27: Updated 02 test was completed and faxed to [facility] vendor. . Addendum entered by ELENA Pagan 07/11/24 13:36: [facility] vendor is requesting an updated 02 test with three part step. Notified bedside-EVERTON Headley. Original Note: SS follow up: faxed 02 DME order to [facility] at fax:[phone]. Pending response. Plan is to d/c the patient home today. Pending delivery of 02.
[2024-07-11 12:00] VITALS: BP 108/56; PULSE 66; RESP 18; TEMP 36.2; O2SAT 95
--- NOTE | 2024-07-11 12:58 | PC.NURSE ---
Addendum entered by ELENA Pagan 07/11/24 14:22: Pending new 02 test to be completed per [facility] request. EVERTON-Lex informed. Original Note: pt waiting on o2 delivery to be discharged today
--- NOTE | 2024-07-11 14:23 | PC.NURSE ---
Pt at rest on RA 95%. Pt ambulating on RA 85%.
--- NOTE | 2024-07-11 15:01 | PC.NURSE ---
RA 94% at rest, RA 85% with exercise, Recovery test: 96% 4L 93% 2L with exercise
--- NOTE | 2024-07-11 15:09 | ESDS_ITS ---
<Statement entered by Stas Mensah MD - 07/11/24 21:52> I discussed with and supervised the mechanical intern physician involved in the care of this patient. Patient assessment and plan was discussed with entire medicine team, including my attending. I agree with the assessment and plan as documented by mechanical intern doctor. Patient care was discussed with my attending physician Dr.Tingle Stas Mensah, PGY-2 Planned Discharge Date 07/11/24 DS: Providers Provider Date of admission: 07/09/24 20:17 Primary care physician: Minerva Spencer PA-C Admitting Provider: Pedro Tafoya DO Attending Provider on Admission: Pedro Tafoya DO Attending Provider on DC: Quinton Rey MD Discharging Provider: Quinton Rey MD DS: Diagnosis Problem List Completed Was Problem List Reviewed/Reconciled?: Yes Hospital Course Hospital Course Hospital course: 74-year-old female with past medical history of hypertension, prediabetes, and hyperlipidemia was admitted to the hospital on 08/05/2024 after coming to the ED with complaints of shortness of breath and admitted in the hospital for community-acquired pneumonia, left side Hospital course: Vitals at the time of admission significant for mildly elevated blood pressure,tachypnea, afebrile, and SpO2 91% with 2 L oxygen. Initial labs were unremarkable and troponins were negative as well as procalcitonin. chest x-ray showed infiltrate in posterior basal segment of the left lower lobe and EKG shows sinus rhythm. In the ED patient received breathing treatments and dexamethasone, without any improvement in patient's O2 saturations. Patient is admitted in the hospital in view of community-acquired pneumonia and started on ceftriaxone, azithromycin, oxygen. No significant events during the hospitalization. Patient is able to saturate around 94 to 95% on room air and on ambulation, patient desaturated to 86%. Patient requested to go home for which patient was sent home with home oxygen as patient is able to maintain saturations on room air and her vitals are stable without any febrile episodes noted during the hospitalization Patient is discharged to home with the following medications and recommendations - Follow-up with PCP within 1 week of discharge. If you do not have appointment, please follow-up with the [facility] with Dr. Rey. Call [phone] to make an appointment. - Recommended to take amoxicillin and clavulanate twice daily for 5 days, azithromycin 500 Mg p.o. once daily for 3 days, benzonatate 100 Mg every 8 hourly as needed for cough - Recommended to continue amitriptyline, aspirin, atorvastatin - Recommended to hold ramipril as blood pressures are stable with during the hospitalization and restart after visiting PCP or if blood pressure is greater than 130/90 mmHg - Return to ED if symptoms persist or return Patient plan of care was discussed with the attending physician, Dr. Tafoya and senior resident Dr. Rodrick Rey, PGY1 Time Spent with Patient Time attestation: Total time spent providing and/or coordinating discharge services: Time spent: Greater than 30 minutes Exam Vital Signs Temp Pulse Resp BP Pulse Ox O2 Del Method O2 Flow Rate 97.1 F 66 18 108/56 L 95 Nasal Cannula 1 07/11/24 12:07/11/24 12:07/11/24 12:07/11/24 12:07/11/24 12:07/11/24 12:07/11/24 12:00 Narrative Exam General: Awake. HEENT: Normocephalic, atraumatic, mucous membranes moist. Heart: Regular rate and rhythm, no murmurs. Lungs: Clear to auscultation with no wheezing or crackles. Abdomen: Soft, nondistended, nontender, positive bowel sounds. ?No guarding or rebound tenderness. Neurologic: Alert and oriented x3, no gross neurological deficit, and patient able to move all 4 extremities. Extremities: No edema. Skin: No rash or ecchymoses. Discharge Plan Plan Patient Disposition: HOME (Self Care) Patient condition on transfer: Stable Care Plan Goals: -Follow-up with PCP within 1 week of discharge. If you do not have appointment, please follow-up with the [facility] with Dr. Rey. Call [phone] to make an appointment. -Recommended to take amoxicillin and clavulanate twice daily for 5 days, azithromycin 500 Mg p.o. once daily for 3 days, benzonatate 100 Mg every 8 hourly as needed for cough - Recommended to continue amitriptyline, aspirin, atorvastatin - Recommended to hold ramipril as blood pressures are stable with during the hospitalization and restart after visiting PCP or if blood pressure is greater than 130/90 mmHg -Return to ED if symptoms persist or return Prescriptions/Referrals Prescriptions/Med Rec: New amoxicillin-pot clavulanate 875-125 mg tablet 1 tab PO Q12H Qty: 10 0RF Rx Instructions: Take twice daily for 5 days azithromycin 500 mg tablet 500 mg PO QDAY 3 Days Qty: 3 0RF benzonatate 100 mg Capsule 200 mg PO Q8HR PRN (Reason: Cough) Qty: 20 0RF Rx Instructions: As needed for cough Continued amitriptyline 25 mg tablet 25 mg PO HS Patient Comments: TAKE ONE TABLET BY MOUTH EVERY DAY AT BED TIME atorvastatin 20 mg tablet 20 mg PO QDAY Patient Comments: TAKE ONE TABLET BY MOUTH EVERY DAY FOR CHOLESTEROL aspirin [Adult Low Dose Aspirin] 81 mg tablet,delayed release (DR/EC) 81 mg PO QDAY Held ramipril 10 mg capsule 10 mg PO QDAY Hold Instructions: Resume on 07/21/24. Blood pressure is within normal limits during hospitalisation without antihypertensives Recommended to start antihypertensives after following with PCP or if BP is >130/90 at home Patient Comments: TAKE ONE CAPSULE BY MOUTH EVERY DAY Referrals: Minerva Spencer PA-C [Primary Care Provider] - Patient/Caregiver Discharge Instructions Discharge Activity: activity as tolerated Education Materials: Cholesterol Medicines, What Is Pneumonia?, Treating Pneumonia Print Language: [place] Islander Stand Alone Forms: [facility] Award Info., Patient Portal Info Letter Discharge Order Discharge Orders: Discharge (Routine); Ordered 07/11/24 Ordered By: Quinton Rey Quality Discharge Quality Measures VTE prophylaxis MD Attestestation MD Attestation I have discussed and was present for the essential components of the discharge history, physical examination, diagnosis, and discharge treatment plan with the resident. I agree with the patient's discharge care as documented by the resident and amended herein by me. King Tafoya, . The patient understood all discharge instructions, all questions were answered satisfactorily. The patient was instructed to return to the [facility] is symptoms worsened or persisted. Patient stable, sitting in chair on room air at time of discharge home however did desaturate with ambulatory SpO2 testing to approximately 86% hence will be discharged with home O2. Cocci test has been negative. Will discharge with a short course of amoxicillin and azithromycin, see resident note above for additional details. Patient was stable, afebrile and tolerating p.o. intake at time of discharge home. Although this document has been carefully reviewed, there may still be some phonetic and other typographical errors. These errors are purely grammatical due to imperfections in the software program and should not be construed in any way to compromise the substance of the patient's medical care during this visit.
[2024-07-11 15:51] VITALS: BP 112/58; PULSE 84; RESP 18; TEMP 36.2; O2SAT 95
== END 2024-07-11 17:58 | disposition home or self-care (01) | DRG 193 ==
LOC: SERX 16:16 → SERHOLD 20:35 → S3NX 21:51
PROVIDERS: Nurse Practitioner Family; Nurse Practitioner Primary Care; Admitting Provider Student in an Organized Health Care Education/Training Program; Emergency Provider Emergency Medicine; PCP Physician Assistant; Visit Provider Student in an Organized Health Care Education/Training Program
DX: J15.9 Unspecified bacterial pneumonia (principal); J96.01 Acute respiratory failure with hypoxia; R73.03 Prediabetes; E78.5 Hyperlipidemia, unspecified; I10 Essential (primary) hypertension; Z87.891 Personal history of nicotine dependence; Z86.73 Personal history of transient ischemic attack (TIA), and cerebral infarction without residual deficits; Z88.6 Allergy status to analgesic agent
CPT/HCPCS: 36415; 71046; 80053; 80061; 83036; 83605; 83735; 84145; 84439; 84443; 84484; 85025; 85379; 86331; 86635; 87040; 87205; 87400; 87634; 87811; 93005; 94640; 94762; 96365; 99285; A9270; J0456; J0696; J1100; J1644; J7050

== ENCOUNTER → 2024-08-05 | Outpatient (CLI) | payer OTHER, SELFPAY ==
--- NOTE | 2024-08-05 11:04 | XR_ITS ---
Examination: PA lateral chest 2 views TECHNIQUE: Upright PA lateral chest 2 views Date and time: August 05, 2024 11:23 AM Comparison July 09, 2024 INDICATIONS: Coughing beginning one week ago. FINDINGS: Normal heart size No lobar pneumonia Minor blunting of left lateral costophrenic angle Prominent osteopenia IMPRESSION: No pneumonia identified
[2024-08-05 12:06] LABS: Basophils % (Auto) 0 % (0-2.5); Eosinophils # (Auto) 0.3 Thou/mm3 (0.0-0.5); Eosinophils % (Auto) 3 % (0-10); Hematocrit 40.8 % (36.0-46.0); Hemoglobin 13.1 g/dL (12.0-16.0); Immature Granulocytes % (Auto) 1 % (0-0); Immature Granulocytes Auto 0.08 Thou/mm3 (0.00-0.00); Lymphocytes % (Auto) 30 % (10-50); Mean Corpuscular HGB Conc 32.1 g/dl (31.0-37.0); Mean Corpuscular Hemoglobin 28.4 pg (25.0-35.0); Mean Corpuscular Volume 89 fL (80-100); Monocytes # (Auto) 0.9 Thou/mm3 (0.0-0.8); Monocytes % (Auto) 9 % (0-12); Neutrophils # (Auto) 5.8 Thou/mm3 (1.8-7.7); Neutrophils % (Auto) 57 % (37-80); Nucleated Red Blood Cell % 0 /100 WBC (0); Platelet Count 262 Thou/mm3 (140-440); RDW Standard Deviation 46.9 fL (36.4-46.3); Red Blood Count 4.61 Miln/mm3 (4.00-5.20); White Blood Count 10.1 Thou/mm3 (3.6-11.0)
[2024-08-05 12:38] LABS: Alanine Aminotransferase 27 U/L (10-49); Albumin, Serum 4.3 gm/dL (3.4-4.8); Albumin/Globulin Ratio 2.2 (1.2-2.2); Alkaline Phosphatase 79 U/L (46-116); Anion Gap 6 (7-16); Aspartate Amino Transferase 16 U/L (0-34); BUN/Creatinine Ratio 17 Ratio (12-20); Bilirubin,Total 0.4 mg/dL (0.3-1.2); Blood Urea Nitrogen 10 mg/dL (9-23); Calcium 9.3 mg/dL (8.3-10.6); Calcium (Corrected) 9.3 mg/dL (8.5-10.1); Carbon Dioxide 27.3 mMol/L (20.0-31.0); Chloride 110 mMol/L (98-107); Creatinine (Component) 0.6 mg/dL (0.6-1.3); Glucose 103 mg/dL (74-106); Osmolality,Calculated 283 (275-295); Potassium 4.1 mMol/L (3.4-5.1); Sodium 143 mMol/L (136-145); Thyroid Stimulating Hormone 1.41 uIU/mL (0.55-4.78); Total Protein 6.3 gm/dL (5.7-8.2); eGFR > 60 See Note
== END | disposition home or self-care (01) ==
PROVIDERS: PCP Family Medicine; Referring Provider Physician Assistant; Visit Provider Radiology Diagnostic Radiology
DX: J18.9 Pneumonia, unspecified organism (principal); D72.829 Elevated white blood cell count, unspecified; R94.6 Abnormal results of thyroid function studies
CPT/HCPCS: 36415; 71046; 80053; 84443; 85025

== ENCOUNTER → 2024-10-04 | Outpatient (CLI) | payer OTHER, SELFPAY ==
--- NOTE | 2024-10-04 13:00 | XR_ITS ---
Examination: Screening digital mammography, bilateral Computer aided detection 3-D breast Tomosynthesis, bilateral Date and time of exam: 10/04/2024, 12:58 PM Comparisons: October 2019 through February 2022 Indications: Screening Technique: Nonmagnified MLO, CC views of the breasts to been obtained, reconstructed from 3-D Tomosynthesis images. R2 computer aided detection program utilized for evaluation of suspicious masses and/or abnormal calcifications. 3-D Tomosynthesis images obtained. Technologist: Findings: There are scattered areas of fibroglandular density. No evidence of abnormal masses or suspicious calcifications. Impression: BI-RADS category 1: Negative findings (within normal) Recommend 1 year follow-up mammogram
--- NOTE | 2024-10-04 13:15 | XR_ITS ---
Examination: Bone densitometry Date and time of exam:October 04, 2024, 1315 hours INDICATIONS: Menopause age 43 calcium 5 years, personal history osteopenia Technique: Lumbar spine and hip total bone mineralization values of an calculated. Peak reference and age match control results have been displayed. Findings: Lumbar spine total bone mineralization is0.887 gm/cm2. This is 1.5 standard deviations below peak reference. This is 1.0 standard deviations above age-matched controls. Hip total bone mineralization is 1.022 gm/cm2 This is 0.4 standard deviations above peak reference. This is 2.3 standard deviations above age-matched controls Impression: There is osteopenia based on lumbar spine measurements. There is osteopenia based on hip measurements Lumbar mineralization is decreased 3.0% compared with March 08, 2022. Hip mineralization is decreased 9.1% compared with March 08, 2022
[2024-10-04 13:44] LABS: Collection Type, Urine Clean Catch
[2024-10-04 14:12] LABS: Basophils # (Auto) 0.0 Thou/mm3 (0.0-0.2); Basophils % (Auto) 0 % (0-2.5); Eosinophils # (Auto) 0.2 Thou/mm3 (0.0-0.5); Eosinophils % (Auto) 2 % (0-10); Hematocrit 40.5 % (36.0-46.0); Hemoglobin 13.0 g/dL (12.0-16.0); Immature Granulocytes Auto 0.03 Thou/mm3 (0.00-0.00); Lymphocytes # (Auto) 2.9 Thou/mm3 (1.0-4.8); Lymphocytes % (Auto) 36 % (10-50); Mean Corpuscular HGB Conc 32.1 g/dl (31.0-37.0); Mean Corpuscular Hemoglobin 28.0 pg (25.0-35.0); Mean Corpuscular Volume 87 fL (80-100); Monocytes # (Auto) 0.6 Thou/mm3 (0.0-0.8); Monocytes % (Auto) 7 % (0-12); Neutrophils # (Auto) 4.4 Thou/mm3 (1.8-7.7); Neutrophils % (Auto) 54 % (37-80); Nucleated Red Blood Cell # 0.00 Thou/mm3 (0.00-0.00); Nucleated Red Blood Cell % 0 /100 WBC (0); Platelet Count 255 Thou/mm3 (140-440); RDW Standard Deviation 44.6 fL (36.4-46.3); Red Blood Count 4.65 Miln/mm3 (4.00-5.20); White Blood Count 8.1 Thou/mm3 (3.6-11.0)
[2024-10-04 14:14] LABS: Alanine Aminotransferase 32 U/L (10-49); Albumin, Serum 4.3 gm/dL (3.4-4.8); Albumin/Globulin Ratio 2.4 (1.2-2.2); Alkaline Phosphatase 75 U/L (46-116); Anion Gap 8 (7-16); Aspartate Amino Transferase 28 U/L (0-34); BUN/Creatinine Ratio 13 Ratio (12-20); Bilirubin,Total 0.5 mg/dL (0.3-1.2); Blood Urea Nitrogen 8 mg/dL (9-23); Calcium 10.0 mg/dL (8.3-10.6); Calcium (Corrected) 10.0 mg/dL (8.5-10.1); Carbon Dioxide 28.8 mMol/L (20.0-31.0); Cardiac Risk Estimate 2.4 RATIO (3.7-5.6); Chloride 108 mMol/L (98-107); Cholesterol 147 mg/dL (132-200); Creatinine (Component) 0.6 mg/dL (0.6-1.3); Globulin 1.8 gm/dL (2.3-3.5); Glucose 89 mg/dL (74-106); HDL Cholesterol 61 mg/dL (40-60); LDL Cholesterol,Calculated 58 mg/dL (0-130); Osmolality,Calculated 286 (275-295); Potassium 4.3 mMol/L (3.4-5.1); Sodium 145 mMol/L (136-145); Thyroid Stimulating Hormone 1.78 uIU/mL (0.55-4.78); Total Protein 6.1 gm/dL (5.7-8.2); Triglycerides 139 mg/dL (30-150); eGFR > 60 See Note
[2024-10-04 14:24] LABS: Bilirubin,Urine Negative (Negative); Blood,Urine Negative (Negative); Clarity,Urine Clear (Clear/Hazy); Color,Urine Lt-Yellow (Lt Yel-Yel); Glucose, Urine Negative (Negative); Ketones,Urine Negative (Negative); Leukocyte Esterase,Urine Positive (Negative); Nitrite,Urine Negative (Negative); PH,Urine 6.0 (5.0-7.0); Protein,Urine Negative (Neg - Trace); RBC,Urine 3 /hpf (0-3); Specific Gravity,Urine 1.017 (1.001-1.035); Squamous Epithelial Cell,Urine < 1 /hpf (0-5); Urobilinogen,Urine Negative mg/dL (0.0-1.0); WBC,Urine 24 /hpf (0-5)
[2024-10-04 14:25] LABS: Vitamin B12 464 pg/mL (211-911); Vitamin D 25 Hydroxy Total 38.3 ng/mL (7.3-40.2)
[2024-10-04 14:30] LABS: Culture Indicated,Urine Yes
== END | disposition home or self-care (01) ==
LOC: CDIM 12:41 → COPL 13:20
PROVIDERS: PCP Family Medicine; Referring Provider Physician Assistant; Visit Provider Radiology Diagnostic Radiology
DX: Z12.31 Encounter for screening mammogram for malignant neoplasm of breast (principal); R92.8 Other abnormal and inconclusive findings on diagnostic imaging of breast; R92.313 Mammographic fatty tissue density, bilateral breasts; M89.9 Disorder of bone, unspecified; M85.89 Other specified disorders of bone density and structure, multiple sites; Z00.00 Encounter for general adult medical examination without abnormal findings; E78.5 Hyperlipidemia, unspecified; E55.9 Vitamin D deficiency, unspecified
CPT/HCPCS: 36415; 77063; 77067; 77080; 80053; 80061; 81001; 82306; 82607; 84443; 85025; 87086

== ENCOUNTER → 2024-10-08 | Outpatient (CLI) | payer OTHER, SELFPAY ==
[2024-10-14 09:09] LABS: Fecal Globin Result NOT DETECTED (NOT DETECTED)
== END | disposition home or self-care (01) ==
LOC: SLDO 14:34
PROVIDERS: PCP Physician Assistant; Referring Provider Physician Assistant; Visit Provider Physician Assistant
DX: Z00.00 Encounter for general adult medical examination without abnormal findings (principal); E78.5 Hyperlipidemia, unspecified; E55.9 Vitamin D deficiency, unspecified
CPT/HCPCS: 82274; G0328